=== PATIENT | female | born 1940 | race Caucasian/White ===

== ENCOUNTER 2019-10-29 13:55 | Emergency (ER) | payer MEDICARE, OTHER ==
--- NOTE | 2019-10-29 14:23 | ED Physician Documentation ---
History of Present Illness - Stated complaint Stated Complaint: L LEG SWELL/PX - Chief complaint Chief Complaint: Ext Problem - History obtained from History obtained from: Patient - History of Present Illness Timing: Yesterday Pain level max: 0 Pain level now: 0 - Additonal information Additional information: 78-year-old female presents to the emergency department stating that she had left foot swelling yesterday, better today. She tried to call her doctor and was directed to the nurse advice line. They recommend that she come here to rule out a DVT in her leg. She is not having any calf pain. No thigh pain. She states the swelling has improved. No redness. No fevers. No changes to her medications. No recent surgery or immobilization. Nothing makes it better or worse Review of Systems Constitutional: denies: Fever, Chills Throat: denies: Sore throat Cardiac: denies: Chest pain / pressure, Palpitations Respiratory: denies: Dyspnea, Cough, Wheezing GI: denies: Vomiting, Diarrhea Skin: denies: Rash Musculoskeletal: denies: Neck pain, Back pain Neurologic: denies: Headache PD PAST MEDICAL HISTORY - Past Medical History Past Medical History: Yes - Past Surgical History Past Surgical History: Yes - Allergies Allergies/Adverse Reactions: Allergies Allergy/AdvReac Type Severity Reaction Status Date / Time No Known Drug Allergies Allergy Verified 10/29/19 14:15 - Social History Does the pt smoke?: No Smoking Status: Never smoker Does the pt have substance abuse?: No - Immunizations Immunizations are current?: Yes PD ED PE NORMAL - Vitals Vital signs reviewed: Yes - General General: Alert and oriented X 3, No acute distress - HEENT HEENT: Moist mucous membranes - Neck Neck: Supple, no meningeal sign - Cardiac Cardiac: RRR - Respiratory Respiratory: No respiratory distress, Clear bilaterally - Derm Derm: Warm and dry - Extremities Extremities: Other (Minimal edema to the left calf and left foot. No calf tenderness. No palpable cord. Neurovascular intact. No redness. Normal skin.) - Neuro Neuro: Alert and oriented X 3 Results - Vitals Vitals: Vital Signs - 24 hr 10/29/19 10/29/19 14:05 14:08 Temperature 36.1 C L 36.5 C Heart Rate 88 Respiratory 16 Rate Blood Pressure 181/110 H O2 Saturation 98 Oxygen O2 Source Room air PD MEDICAL DECISION MAKING - ED course Complexity details: considered differential, d/w patient Departure - Departure Disposition: 01 Home, Self Care Clinical Impression: Peripheral edema Condition: Good Instructions: ED Leg Swelling Unilateral Follow-Up: your,doctor in 1 week [Other] Comments: Return if you worsen. Follow up with your doctor for further care. Your ultrasound is negative today.
--- NOTE | 2019-10-29 15:06 | Ultrasound Report ---
PROCEDURE: Duplex Ext Veins Left INDICATIONS: L leg swelling TECHNIQUE: Real-time imaging, as well as color and pulse Doppler interrogation, were performed of the lower extr emity deep veins from the inguinal ligament to the popliteal fossa. COMPARISON: None. FINDINGS: The deep veins are normally compressible, and free of intraluminal thrombus. Color and pu lse Doppler demonstrate normal phasic intraluminal flow. There is normal augmentation response to di stal compression maneuver. IMPRESSION: No evidence of DVT in visualized left lower extremity veins. Reviewed by: Shady Da Silva MD on 10/29/2019 3:05 PM PDT Approved by: Shady Da Silva MD on 10/29/2019 3:05 PM PDT Station ID: [id number]
[2019-10-29 15:22] VITALS: BP 163/83
== END 2019-10-29 15:20 | disposition home or self-care (01) ==
LOC: ED 13:55
DX: R60.0 Localized edema (principal)
CPT/HCPCS: 99283; 99284

== ENCOUNTER 2023-04-25 10:25 | Emergency (ER) | payer MEDICARE, OTHER ==
[2023-04-25 10:36] VITALS: O2SAT 99
[2023-04-25 10:55] VITALS: BP 175/96
--- NOTE | 2023-04-25 10:55 | ED Physician Documentation ---
History of Present Illness - Stated complaint Stated Complaint: LT ANKLE PX - Chief complaint Chief Complaint: Ext Problem - History obtained from History obtained from: Patient, Family - History of Present Illness Timing: How many weeks ago (2) - Additonal information Additional information: Previously well 82-year-old Deanne Nicholas presents to the emergency department today with the chief complaint of left lower extremity swelling that has been present for about 2 weeks. She noted swelling to her foot initially enough that it obscured the veins to the top of her foot. She has had some decrease in the swelling now and she is noticing some burning sensation to the anterior calf with swelling of the veins present. She has no pain to the posterior calf or thigh. Review of Systems Constitutional: denies: Fever Eyes: denies: Decreased vision Ears: denies: Ear pain Nose: denies: Congestion Throat: denies: Sore throat Respiratory: denies: Cough GI: denies: Vomiting : denies: Dysuria, Frequency Skin: denies: Rash Musculoskeletal: reports: Extremity pain, Extremity swelling. denies: Neck pain, Back pain Neurologic: denies: Generalized weakness, Focal weakness, Numbness PD PAST MEDICAL HISTORY - Past Medical History Past Medical History: No - Past Surgical History Past Surgical History: Yes - Allergies Allergies/Adverse Reactions: Allergies Allergy/AdvReac Type Severity Reaction Status Date / Time [id number] Reductase Allergy Unknown Verified 04/25/23 10:34 Inhibitor - Social History Does the pt smoke?: No Smoking Status: Never smoker Does the pt drink ETOH?: Yes Does the pt have substance abuse?: No - Immunizations Immunizations are current?: Yes - POLST Patient has POLST: No PD ED PE NORMAL - Vitals Vital signs reviewed: Yes (hypertensive ) - General General: Alert and oriented X 3, No acute distress, Well developed/nourished - HEENT HEENT: Atraumatic, PERRL, EOMI - Neck Neck: Supple, no meningeal sign, No bony TTP - Respiratory Respiratory: No respiratory distress - Back Back: No CVA TTP, No spinal TTP - Derm Derm: Normal color, Warm and dry, No rash - Extremities Extremities: No deformity, Other (trace edema to the left foot with visible dorsal veins. medial calf with engorged veins mildly tender. ) - Neuro Neuro: Alert and oriented X 3, maintenance fitter 2-12 intact, No motor deficit, No sensory deficit, Normal speech Eye Opening: Spontaneous Motor: Obeys Commands Verbal: Oriented GCS Score: 15 - Psych Psych: Normal mood, Normal affect Results - Vitals Vitals: Vital Signs - 24 hr 04/25/23 04/25/23 10:29 10:49 Temperature 36.0 C L Heart Rate 55 L 65 Respiratory 14 Rate Blood Pressure 169/78 H 175/96 H O2 Saturation 99 99 Oxygen O2 Source Room air - Rads (name of study) duplex veins L Relevant Findings:: Prelim report reviewed (Impression: No deep vein venous thrombosis of the visualized lower extremity.), EMP independent interpretation of test, See rad report PD Medical Decision Making - ED course Complexity details: reviewed old records, reviewed results, re-evaluated patient, considered differential, d/w patient, d/w family ED course: 82-year-old female with swelling to the dorsum of her left foot and engorged superficial veins presents for evaluation of deep vein thrombosis. A ultrasound is obtained demonstrating no evidence of deep vein thrombosis. Departure - Departure Disposition: 01 Home, Self Care Clinical Impression: Peripheral edema Condition: Stable Instructions: ED Leg Swelling Unilateral Follow-Up: Cindy Prescott MD [Physician No Access] - Comments: Deanne, today we did not find a specific reason for your edema on your left leg. We were able to determine that there is no evidence of a deep vein thrombosis. Discharge Date/Time: 04/25/23 14:32
--- NOTE | 2023-04-25 15:51 | Ultrasound Report ---
PROCEDURE: Duplex Ext Veins Left INDICATIONS: LLE swelling TECHNIQUE: Real-time imaging, as well as color and pulse Doppler interrogation, were performed of the lower extr emity deep veins from the inguinal ligament to the popliteal fossa. Attempted visualization of the ca lf veins was performed. COMPARISON: 11/28/2019 FINDINGS: The deep veins are normally compressible, and free of intraluminal thrombus. Color and pu lse Doppler demonstrate normal phasic intraluminal flow. There is normal augmentation response to di stal compression maneuver. IMPRESSION: No deep venous thrombosis of the visualized lower extremity. Note: Concordant preliminary findings given by the electromedical equipment repairer upon the completion of the examination to Dr. Steel. Reviewed by: Gareth Stafford MD on 04/25/2023 2:50 PM [place] Approved by: Gareth Stafford MD on 04/25/2023 2:50 PM [facility] Station ID: [id number]
== END 2023-04-25 14:32 | disposition home or self-care (01) ==
LOC: ED 10:25
DX: R60.9 Edema, unspecified (principal)
CPT/HCPCS: 99282; 99284